=== PATIENT | female | born 1985 | race Caucasian/White ===

== ENCOUNTER 2018-05-26 18:36 | Emergency (ER) | payer MEDICAID, OTHER ==
[~2018-05-26] VITALS: Ht 162.6 cm; Wt 92.0 kg
[~2018-05-26 18:36] MED LIST: ASPI-1160 PO; FERR-43 PO; LABE100T5 PO; PREN-88 PO
[2018-05-26] MEDS ORDERED: KETOROLAC 60MG/2ML VIAL IM ONE (20:30)
[2018-05-26 21:06] LABS: CLARITY URINE HAZY (CLEAR); COLOR URINE YELLOW (YELLOW); KETONES URINE TRACE (NEGATIVE); LEUKOCYTE ESTERASE URINE NEGATIVE (NEGATIVE); NITRITE URINE NEGATIVE (NEGATIVE); OCCULT BLOOD URINE NEGATIVE (NEGATIVE); PROTEIN URINE 1+ (NEGATIVE); SPECIFIC GRAVITY URINE 1.045 (1.005-1.030)
[2018-05-26 23:43] VITALS: BP 149/88
== END 2018-05-26 23:44 | disposition home or self-care (01) ==
LOC: ER 18:36
DX: J20.9 Acute bronchitis, unspecified (principal); I10 Essential (primary) hypertension; Z88.1 Allergy status to other antibiotic agents; Z79.899 Other long term (current) drug therapy
CPT/HCPCS: 71045; 81003; 81025; 96372; 99284; J1885

== ENCOUNTER 2022-08-17 18:41 | Emergency (ER) | payer OTHER ==
[~2022-08-17] VITALS: Ht 162.6 cm; Wt 78.0 kg
[~2022-08-17 18:41] MED LIST changes: -LABE100T5 PO; +LABE100T9 PO
[2022-08-17 18:58] VITALS: BP 165/110; PULSE 86; RESP 20; TEMP 98.2; O2SAT 100
[2022-08-17 19:26] LABS: CLARITY URINE BLOODY (CLEAR); COLOR URINE RED (YELLOW); SPECIFIC GRAVITY URINE 1.025 (1.005-1.030)
[2022-08-17 19:27] LABS: KETONES URINE 1+ (NEGATIVE); LEUKOCYTE ESTERASE URINE 3+ (NEGATIVE); NITRITE URINE POSITIVE (NEGATIVE); OCCULT BLOOD URINE 4+ (NEGATIVE); PROTEIN URINE 3+ (NEGATIVE)
[2022-08-17 19:37] LABS: HEMATOCRIT. 29.7 % (36.0-48.0); HEMOGLOBIN. 9.6 g/dL (12.0-16.0); MEAN CORPUSCULAR HEMOGLOBIN 23.1 pg (28.0-32.0); MEAN CORPUSCULAR VOLUME 71.5 fL (81.0-99.0); MEAN PLATELET VOLUME 8.8 fl (7.4-10.4); MONOCYTES % 7.2 % (2.0-8.0); NEUTROPHILS % 48.8 % (40.0-76.0); PLATELET 351 x1000/uL (130-400); RED BLOOD CELL COUNT 4.15 mill/uL (4.2-5.4); RED CELL DISTRIBUTION WIDTH 16.2 % (11.6-14.6)
[2022-08-17 19:44] LABS: CHLORIDE 111 mEq/L (98-107)
[2022-08-17 19:49] LABS: HCG SCREEN NEGATIVE
== END 2022-08-18 00:08 | disposition left against medical advice (07) ==
LOC: ER 18:52
DX: Z53.21 Procedure and treatment not carried out due to patient leaving prior to being seen by health care provider (principal)
CPT/HCPCS: 36415; 80053; 81003; 81025; 84703; 85025; 99281